=== PATIENT | female | born 1955 | race Two or more races ===

== ENCOUNTER → 2017-03-03 | Outpatient (REF) | payer OTHER | LOC: M SFHCLERA 11:34 | PROVIDERS: ATTEND Nurse Practitioner Family | DX: R53.81 Other malaise (principal) ==

== ENCOUNTER → 2023-01-08 | Outpatient (CLI) | payer MEDICARE, OTHER ==
[~2023-01-08] MED LIST: GASTROGRAFIN SOLUTION 30ML As Ordered ONE; ISOVUE-370 76% 100ML VIAL As Ordered ONE
== END ==
LOC: M RAD 12:40
PROVIDERS: ATTEND Internal Medicine
DX: R10.13 Epigastric pain (principal)
CPT/HCPCS: 74177; Q9963; Q9967

== ENCOUNTER → 2024-05-30 | Outpatient (CLI) | payer MEDICARE, OTHER ==
[~2024-05-30] MED LIST changes: +E-Z-PAQUE 96% w/w SUSP 176GM BTL As Ordered ONE; -GASTROGRAFIN SOLUTION 30ML As Ordered ONE; -ISOVUE-370 76% 100ML VIAL As Ordered ONE
== END ==
LOC: M RAD 08:30
PROVIDERS: ATTEND Surgery
DX: K44.9 Diaphragmatic hernia without obstruction or gangrene (principal)

== ENCOUNTER 2024-06-17 07:18 | Day surgery (SDC) | payer MEDICARE ==
[~2024-06-17] VITALS: Ht 157.5 cm; Wt 68.9 kg
[~2024-06-17 07:18] MED LIST changes: +ALLE180T33 PO; +ATOR1TAB21 PO; -E-Z-PAQUE 96% w/w SUSP 176GM BTL As Ordered ONE; +FAMO20TA PO; +FLON1SPR; +GAVICHW5 PO; +MOME13HF7 INH; +MONT10TA97 PO; +OMEP40CA4 PO; +SYNT50TA PO
[2024-06-17] MEDS ORDERED: propofoL 200 MG/20 ML VIAL As Ordered ONE (08:44)
[2024-06-17] MEDS ORDERED: fentaNYL 100 MCG/2 ML INJECTION As Ordered ONE (09:16)
[2024-06-17 09:20] VITALS: BP 135/86; O2SAT 99
== END 2024-06-17 09:20 | disposition home or self-care (01) ==
LOC: M OPP 07:18
PROVIDERS: ATTEND Surgery
DX: K44.9 Diaphragmatic hernia without obstruction or gangrene (principal); K31.89 Other diseases of stomach and duodenum; Z88.0 Allergy status to penicillin; Z79.899 Other long term (current) drug therapy; J45.909 Unspecified asthma, uncomplicated; Z87.891 Personal history of nicotine dependence
CPT/HCPCS: 43239; 88305; 91035; J3010

== ENCOUNTER 2024-07-12 07:25 | Day surgery (SDC) | payer MEDICARE, MEDICAID ==
[~2024-07-12] VITALS: Ht 157.5 cm; Wt 70.3 kg
[~2024-07-12 07:25] MED LIST changes: +ALBU8.5H INH; +BIOT1CAP2 PO; +NOXI1TAB PO
[2024-07-12] MEDS ORDERED: LIDOCAINE VISCOUS 2% SOLN 15ML UDC As Ordered ONE (08:06)
[2024-07-12 08:53] VITALS: BP 162/84; TEMP 97.6; O2SAT 98
[2024-08-02] MEDS ORDERED: FAMO1TAB11 PO (11:19)
[2024-08-02] MEDS ORDERED: OMEP40CA5 PO (11:19)
[2024-08-02] MEDS ORDERED: LEVO50TA5 PO (11:19)
[2024-08-02] MEDS ORDERED: D3 M1CAP2 PO (11:26)
[2024-08-02] MEDS ORDERED: BIOT5TAB3 PO (11:26)
[2024-08-02] MEDS ORDERED: MOME13HF7 IN (11:26)
[2024-08-02] MEDS ORDERED: IBUP200T46 PO (11:26)
[2024-08-02] MEDS ORDERED: META28.32 PO (11:26)
== END 2024-07-12 09:00 | disposition home or self-care (01) ==
LOC: M OPP 07:25
PROVIDERS: ATTEND Surgery
DX: K44.9 Diaphragmatic hernia without obstruction or gangrene (principal)

== ENCOUNTER 2024-08-15 06:14 | Day surgery (SDC) | payer MEDICARE, MEDICAID ==
[~2024-08-15] VITALS: Ht 157.5 cm; Wt 70.7 kg
[~2024-08-15 06:14] MED LIST changes: +BIOT5TAB3 PO; +D3 M1CAP2 PO; +FAMO1TAB11 PO; +IBUP200T46 PO; +LEVO50TA5 PO; +META28.32 PO; +MOME13HF7 IN; +OMEP40CA5 PO
[2024-08-15] MEDS ORDERED: LR 1,000 ML IV SCH (06:20)
[2024-08-15] MEDS ORDERED: SUGAMMADEX SODIUM 500 MG/5 ML VIAL (BRIDION) As Ordered ONE (06:52)
[2024-08-15] MEDS ORDERED: propofoL 200 MG/20 ML VIAL As Ordered ONE (06:52)
[2024-08-15] MEDS ORDERED: LIDOCAINE 2% 100MG/5ML SDV (FOR ANES.) As Ordered ONE (06:52)
[2024-08-15] MEDS ORDERED: ROCURONIUM BROMIDE 50MG/5ML VIAL As Ordered ONE (06:52)
[2024-08-15] MEDS ORDERED: ONDANSETRON 4MG 2ML VIAL As Ordered ONE (06:52)
[2024-08-15] MEDS ORDERED: MIDAZOLAM INJ 2MG/2ML VIAL As Ordered ONE (07:00)
[2024-08-15] MEDS ORDERED: fentaNYL 250 MCG/5 ML INJECTION As Ordered ONE (07:00)
[2024-08-15] MEDS ORDERED: dexmedeTOMIDine (4MCG/ML)200MCG/50ML BTL (PRECEDEX) As Ordered ONE (07:05)
[2024-08-15] MEDS: ceFAZolin SOD 2 GM IV ONCE IV ONE (07:51)
[2024-08-15] MEDS ORDERED: ACETAMINOPHEN 1000MG/100ML IV BAG As Ordered ONE (07:55)
[2024-08-15] MEDS: HEPARIN SOD (PORCINE) 5000UNITS/ML 1ML VIAL/SYRINGE SQ ONE (08:00)
[2024-08-15] MEDS ORDERED: ePHEDrine SULFATE 25 MG/5 ML(5MG/ML) SYRINGE As Ordered ONE (08:00)
[2024-08-15] MEDS ORDERED: KETOROLAC 30 MG/ML 1ML VIAL As Ordered ONE (10:23)
[2024-08-15] MEDS: BUPivacaine LIPOSOME/PF 266MG 20ML VIAL (13.3MG/ML)(EXPAREL) As Ordered ONE (10:31)
[2024-08-15] MEDS ORDERED: fentaNYL 100 MCG/2 ML INJECTION IV PRN (10:35)
[2024-08-15] MEDS ORDERED: ONDANSETRON 4MG 2ML VIAL IV PRN (10:35)
[2024-08-15] MEDS ORDERED: REGL5TAB2 PO (11:02)
[2024-08-15] MEDS ORDERED: SIME1CAP4 PO (11:02)
[2024-08-15] MEDS: oxyCODONE 5MG TAB PO PRN (11:37)
[2024-08-15 12:32] VITALS: BP 132/74; TEMP 97.4; O2SAT 99
== END 2024-08-15 12:37 | disposition home or self-care (01) ==
LOC: M SDC 06:14
PROVIDERS: ATTEND Surgery
DX: K44.9 Diaphragmatic hernia without obstruction or gangrene (principal); R06.83 Snoring; J45.909 Unspecified asthma, uncomplicated; Z88.0 Allergy status to penicillin; Z79.899 Other long term (current) drug therapy; Z87.891 Personal history of nicotine dependence
CPT/HCPCS: 43280; C1781; J0131; J0665; J0666; J0690; J1100; J1885; J2250; J2405; J3010; S2900